=== PATIENT | male | born 1975 | race Native Hawaiian/Other Pacific Islander ===

== ENCOUNTER 2020-06-30 15:06 | Emergency (ER) | payer OTHER ==
[~2020-06-30] VITALS: Ht 177.8 cm; Wt 117.9 kg
[2020-06-30 15:06] VITALS: TEMP 97.9
[2020-06-30 15:34] LABS: PLATELET COUNT 211 K/uL (142-355)
[2020-06-30 15:41] LABS: SODIUM 138 mmol/L (136-145)
[2020-06-30 18:50] VITALS: BP 132/69
== END 2020-06-30 18:55 | disposition home or self-care (01) ==
LOC: ED 15:06
PROVIDERS: Family Medicine
DX: I50.9 Heart failure, unspecified (principal); J44.9 Chronic obstructive pulmonary disease, unspecified; E11.9 Type 2 diabetes mellitus without complications; F17.210 Nicotine dependence, cigarettes, uncomplicated
CPT/HCPCS: 80053; 81000; 82550; 83880; 84484; 85027; 85379; 87635; 93005; 94664; 96374; 96375; 99284; J1940; J2930; U0003

== ENCOUNTER 2020-08-10 05:14 | Inpatient (IN) | payer OTHER ==
[2020-08-10] VITALS (10 sets, daily range): BP systolic 108–172; BP diastolic 63–96; TEMP 97.7–98.5; Ht 177.8 cm; Wt 135.7 kg
[~2020-08-10] VITALS: Ht 177.8 cm; Wt 135.7 kg
[2020-08-10 06:10] LABS: PLATELET COUNT 230 K/uL (142-355)
[2020-08-10 06:14] LABS: POTASSIUM 3.5 mmol/L (3.6-5.2)
[2020-08-10 07:05] LABS: PARTIAL THROMBOPLASTIN TIME 24.3 SECONDS (24.5-33.6)
[2020-08-11 04:00] VITALS: BP 107/73; TEMP 97.9
[2020-08-11 06:29] LABS: PLATELET COUNT 213 K/uL (142-355)
[2020-08-11 08:00] VITALS: BP 122/67; TEMP 98.3
[2020-08-11 12:47] VITALS: BP 123/70; TEMP 98.4
[2020-08-11 16:00] VITALS: BP 122/68; TEMP 98.1
[2020-08-11 20:00] VITALS: BP 128/72; TEMP 97.8
[2020-08-12] VITALS: BP 129/81; TEMP 98.1
[2020-08-12 03:43] VITALS: BP 102/53; TEMP 98.6
[2020-08-12 05:43] LABS: PLATELET COUNT 169 K/uL (142-355)
[2020-08-12 05:54] LABS: POTASSIUM 3.8 mmol/L (3.6-5.2)
[2020-08-12 08:00] VITALS: BP 126/68; TEMP 97.9
[2020-08-12 12:00] VITALS: BP 130/69; TEMP 98.5
[2020-08-12] MEDS ORDERED: FURO40TA93 PO (12:32)
[2020-08-12 16:00] VITALS: BP 120/79; TEMP 97.9
[2020-08-12 20:06] VITALS: BP 128/73; TEMP 98.1
[2020-08-13] VITALS: BP 121/78; TEMP 99
[2020-08-13 04:00] VITALS: BP 117/69; TEMP 98.2
[2020-08-13 05:23] LABS: PLATELET COUNT 148 K/uL (142-355)
[2020-08-13 06:01] LABS: POTASSIUM 3.8 mmol/L (3.6-5.2)
[2020-08-13 08:00] VITALS: BP 113/71; TEMP 97.9
[2020-08-13 12:00] VITALS: BP 117/74; TEMP 97.9
== END 2020-08-13 15:00 | disposition home or self-care (01) | DRG 603 ==
LOC: ED 05:14 → MED/SURG 06:26
PROVIDERS: ADMIT Hospitalist; ATTEND Internal Medicine Endocrinology, Diabetes & Metabolism
DX: L03.116 Cellulitis of left lower limb (principal); Z68.41 Body mass index [BMI] 40.0-44.9, adult; L03.115 Cellulitis of right lower limb; I25.10 Atherosclerotic heart disease of native coronary artery without angina pectoris; I10 Essential (primary) hypertension; J44.9 Chronic obstructive pulmonary disease, unspecified; Z72.0 Tobacco use; E66.01 Morbid (severe) obesity due to excess calories; E78.49 Other hyperlipidemia; E11.9 Type 2 diabetes mellitus without complications; Z91.19 Patient's noncompliance with other medical treatment and regimen
CPT/HCPCS: 36415; 80048; 80053; 80202; 85027; 85610; 85730; 86140; 87040; 87635; 96361; 96365; 96372; 96374; 96375; 99284; J1170; J1650; J1815; J1885; J1940; J2270; J2405; J2543; J3370; U0003

== ENCOUNTER 2020-09-07 07:01 | Observation (INO) | payer OTHER ==
[~2020-09-07] VITALS: Ht 177.8 cm; Wt 135.6 kg
[~2020-09-07 07:01] MED LIST: FURO40TA93 PO
[2020-09-07 07:03] VITALS: BP 125/76; TEMP 98
[2020-09-07 07:29] LABS: POTASSIUM 4.6 mmol/L (3.6-5.2); SODIUM 142 mmol/L (136-145)
[2020-09-07 07:45] LABS: PLATELET COUNT 185 K/uL (142-355)
[2020-09-07 08:12] VITALS: BP 118/71
[2020-09-07 08:12] LABS: PARTIAL THROMBOPLASTIN TIME 23.6 SECONDS (24.5-33.6)
[2020-09-07 12:01] VITALS: BP 111/66; TEMP 98.2; Ht 177.8 cm; Wt 135.6 kg
[2020-09-07 16:00] VITALS: BP 108/69; BP 149/84; TEMP 97.6
[2020-09-07 19:55] VITALS: BP 113/71; TEMP 98.1
[2020-09-07 23:55] VITALS: BP 113/58; TEMP 98.2
[2020-09-08 03:51] VITALS: BP 97/60; TEMP 97.6
[2020-09-08 05:25] LABS: PLATELET COUNT 172 K/uL (142-355)
[2020-09-08 05:35] LABS: POTASSIUM 4.5 mmol/L (3.6-5.2)
[2020-09-08 08:00] VITALS: BP 118/60; TEMP 98.1
== END 2020-09-08 12:50 | disposition home or self-care (01) ==
LOC: ED 07:01 → MED/SURG 08:00
PROVIDERS: ADMIT Hospitalist; ATTEND Internal Medicine Endocrinology, Diabetes & Metabolism
DX: I11.0 Hypertensive heart disease with heart failure (principal); I50.9 Heart failure, unspecified; I25.10 Atherosclerotic heart disease of native coronary artery without angina pectoris; I10 Essential (primary) hypertension; J44.9 Chronic obstructive pulmonary disease, unspecified; Z72.0 Tobacco use; E66.01 Morbid (severe) obesity due to excess calories; Z68.41 Body mass index [BMI] 40.0-44.9, adult; E78.49 Other hyperlipidemia; E11.9 Type 2 diabetes mellitus without complications; Z91.19 Patient's noncompliance with other medical treatment and regimen; L03.116 Cellulitis of left lower limb; L03.115 Cellulitis of right lower limb
CPT/HCPCS: 36415; 80048; 80053; 82550; 82948; 83880; 84484; 85027; 85610; 85730; 87070; 87077; 87186; 87205; 87635; 93005; 94760; 96372; 96374; 96375; 99220; 99284; G0378; J1650; J1815; J1940; J2270; U0003

== ENCOUNTER 2020-09-26 23:16 | Emergency (ER) | payer OTHER ==
[~2020-09-26] VITALS: Ht 177.8 cm; Wt 135.6 kg
[2020-09-27 00:22] VITALS: BP 150/89; TEMP 98.1
== END 2020-09-27 00:24 | disposition home or self-care (01) ==
LOC: ED 23:16
DX: L03.116 Cellulitis of left lower limb (principal); L03.115 Cellulitis of right lower limb; M79.604 Pain in right leg
CPT/HCPCS: 96372; 99283; J0696; J1885

== ENCOUNTER 2020-10-08 18:13 | Observation (INO) | payer OTHER ==
[~2020-10-08] VITALS: Ht 177.8 cm; Wt 132.2 kg
[2020-10-08 18:37] VITALS: BP 129/81; TEMP 98
[2020-10-08 19:46] LABS: PLATELET COUNT 205 K/uL (142-355)
[2020-10-08 20:01] LABS: PARTIAL THROMBOPLASTIN TIME 23.9 SECONDS (24.5-33.6); POTASSIUM 3.6 mmol/L (3.6-5.2); SODIUM 137 mmol/L (136-145)
--- NOTE | 2020-10-08 21:48 | NUR ---
PATIENT TRANSFERRED TO THE FLOOR FROM ER VIA STRETCHER. PATIENT AMBULATED TO BED INDEPENDENTLY. 20G TO RIGHT HAND PATENT AND INTACT. RESPIRATIONS EVEN AND UNLABORED. NAD NOTED. BLE FROM THE KNEES DOWN ARE INFLAMMED AND ERYTHEMATOUS. SMALL SCABBED AREAS NOTED ON ANTERIOR ASPECT ON BOTH LOWER LEGS. OPEN, WEEPING AREA TO POSTERIOR ASPECT OF RIGHT LOWER EXTREMITY. MEASUREMENTS OF OPEN AREA: 11.5CM LENGTH X 8.5CM WIDTH. WEEPING SCANT AMOUNT OF CLEAR, SEROUS FLUID. INITIAL ASSESSMENT PERFORMED AT THIS TIME. PATIENT REPORTS SHOOTING PAIN TO RLE. RATES 8/10. HE IS UNABLE TO RECALL THE MEDICATIONS HE HAS BEEN PRESCRIBED, BUT HE STATES THAT HE ONLY TAKES LASIX AT HOME NOW. PATIENT WAS ORIENTED TO ROOM, SURROUNDINGS AND CALL LIGHT. BED LOCKED AND IN LOWEST POSITION. NAD NOTED.
--- NOTE | 2020-10-08 22:50 | NUR ---
MORPHINE 2MG GIVEN IVP AT THIS TIME FOR RLE PAIN.
[2020-10-08 23:19] VITALS: BP 142/87; TEMP 97.6; Ht 177.8 cm; Wt 132.2 kg
--- NOTE | 2020-10-08 23:54 | NUR ---
TOOK PT INCENTIVE SPIROMETER. HE SAID DID NOT NEED INSTRUCTING ON HOW TO DO. PT NOT IN ANY RESP. DISTRESS.
--- NOTE | 2020-10-08 23:55 | NUR ---
PATIENT STILL REPORTS SIGNIFICANT AMOUNT OF PAIN AT THIS TIME. ER PHYSICIAN DID ORDER A DRESSING TO RLE. NORCO 5/325MG GIVEN. WILL WAIT FOR RELIEF OF PAIN BEFORE DRESSING CHANGE. ZOSYN IVPB STARTED PER MD ORDERS.
[2020-10-09 00:29] VITALS: BP 145/84; TEMP 98
--- NOTE | 2020-10-09 00:30 | NUR ---
OKSANASYN FINISHED AT THIS TIME. 20G TO RIGHT HAND SALINE LOCKED. NO SWELLING OR TENDERNESS NOTED. DRESSING CHANGE PERFORMED AT THIS TIME. LAZARO WRAP APPLIED LOOSELY FOR PATIENT'S COMFORT. PATIENT TOLERATED WELL. HE STATES THAT HIS PAIN HAS IMPROVED SOME. BED LOCKED AND IN LOWEST POSITION. NAD NOTED. CALL LIGHT WITHIN EASY REACH. NC APPLIED @ 3L. V/S SHOW O2 SATURATION OF 90%. PATIENT DOES HAVE COPD AND SLEEP APNEA. HE STATES THAT HE NORMALLY WEARS A NC AT HOME ON 3L/MIN.
[2020-10-09 04:00] VITALS: BP 124/67; TEMP 97.5
--- NOTE | 2020-10-09 06:20 | NUR ---
OKSANASYN IVPB FINISHED. 20G TO RT HAND FLUSHED WITH NS. NO SWELLING OR TENDERNESS NOTED. I ASKED PATIENT MULTIPLE TIMES IF HE WAS IN PAIN OR NEEDED ANYTHING FOR PAIN. HE STATES THAT HE WAS OKAY FOR NOW. NC INTACT @ 3L/MIN. RESPIRATIONS EVEN AND UNLABORED. NAD NOTED. DRESSING TO RLE INTACT. CALL LIGHT WITHIN EASY REACH.
[2020-10-09 07:35] LABS: PLATELET COUNT 185 K/uL (142-355)
[2020-10-09 07:48] LABS: POTASSIUM 3.7 mmol/L (3.6-5.2)
[2020-10-09 08:00] VITALS: BP 112/573; TEMP 98.1
--- NOTE | 2020-10-09 08:30 | NUR ---
SPOKE WITH CLINTON FROM PHARMACY. SHE CHANGED HIS FREQUENCY OF VANCOMYCIN TO EVERY 8 HOURS INSTEAD OF 12. SHE SAID THAT HIS VANC TROUGH WOULD BE DUE AT 0830 ON 10/10/20.
[2020-10-09 12:00] VITALS: BP 125/69; TEMP 98
--- NOTE | 2020-10-09 15:16 | NUR ---
PATIENT COMPLAINS OF SHORTNESS OF BREATH AND STATES THAT HE CAN TELL HE HAS NOT TAKEN HIS LASIX TODAY. SPOKE WITH DR. MOJICA. GAVE 40MG OF IV LASIX PER MD ORDERS. PATIENT SALINE LOCK. PATIENT SITTING IN HIGH OJEDA'S WITH MILD SOB. BED IN LOWEST POSITION. CALL LIGHT WITHIN REACH. SIDE RAILS UP X2. WILL CONTINUE TO MONITOR.
[2020-10-09 16:00] VITALS: BP 136/80; TEMP 98.1
--- NOTE | 2020-10-09 17:45 | NUR ---
DRESSING CHANGE PERFORMED TO RLE PER ORDERS. PATIENT TOLERATED WELL. NAD NOTED. PATIENT STATED THERE WAS MINIMAL PAIN WITH PROCEDURE.
[2020-10-09 19:58] VITALS: BP 101/50; TEMP 98.2
[2020-10-10 00:19] VITALS: BP 98/57; TEMP 98
--- NOTE | 2020-10-10 02:33 | NUR ---
PATIENT AWAKE AND WATCHING TV. PATIENT DENIES ANY PAIN, NEEDS OR C/O AT THIS TIME. NO S/SX OF DISTRESS NOTED WITH PATIENT.
--- NOTE | 2020-10-10 04:03 | NUR ---
PATIENT REPORTED PAIN IN HIS LEGS AT THE BEGINNING OF THE SHIFT BUT AFTER RECIEVEING PAIN MEDICATION AT THE BEGINNING OF THE NIGHT THE PATIENT DENIED PAIN. BOTH LOWER EXTREMITIES HAVE REGULAR PEDAL PULSES. PATIENTS DRESSING ON HIS RT LEG IS CLEAN DRY AND INTACT.
[2020-10-10 04:09] VITALS: BP 94/41; TEMP 98.4
[2020-10-10 05:12] LABS: PLATELET COUNT 161 K/uL (142-355)
[2020-10-10 05:28] LABS: POTASSIUM 3.7 mmol/L (3.6-5.2)
[2020-10-10 08:00] VITALS: BP 88/42; TEMP 98
--- NOTE | 2020-10-10 09:00 | NUR ---
PATIENT BP 88/42. LASIX WITHHELD DUE TO HYPOTENSION.
--- NOTE | 2020-10-10 10:00 | NUR ---
PATIENT RESTING IN BED. MORNING MEDICATION GIVEN. VANC TROUGH RECEIVED FROM LAB- 11.7. NEXT ROUND OF VANC STARTED BY SINK CUTTER. PATIENT TOLERATED WELL. PATIENT STATES HE HAS SOME PAIN FROM RLE. PATIENT REFUSES TYLENOL.
[2020-10-10 12:00] VITALS: BP 110/57; TEMP 98.1
--- NOTE | 2020-10-10 12:00 | NUR ---
PATIENT RESTING IN BED WATCHING TV. NAD NOTED. PATIENT STATES THAT HE HAS MILD PAIN IN RLE. PATIENT REFUSED TYLENOL STATING THAT IT DOES NOT HELP.
[2020-10-10 16:00] VITALS: BP 133/81; TEMP 98.1
--- NOTE | 2020-10-10 18:45 | NUR ---
DRESSING CHANGE TO RLE. PRN MORPHINE GIVEN BEFORE. PATIENT DID NOT HAVE SAME DRESSING THAT LAMINATION ASSEMBLER PLACED YESTERDAY. CLEANED WITH NORMAL SALINE. COVERED WITH SALINE SOAKED 4X4. WITH DRY DRESSING COVERING. WRAPPED IN MEL. THEN WRAPPED WITH LAZARO BANDAGE. PATIENT HAD SEVERE PAIN WITH DRESSING CHAGE. PATIENT WAS TEARFUL. NAD NOTED. WILL CONTINUE TO MONITOR.
[2020-10-10 20:20] VITALS: BP 109/59; TEMP 97.7
[2020-10-11] VITALS: BP 127/67; TEMP 98.3
--- NOTE | 2020-10-11 03:14 | NUR ---
[place] [id number] PATIENT WAS REPORTING PAIN IN HIS LEG. HIS BP WAS 109/59. IT WAS TOO LOW FOR THE HYDROCODONE OR MORPHINE. I CALLED THE ER DOCTOR, GABI AND HER ORDERED 30MG OF TORADOL IV. AFTER 30 MINS PATIENT REPORTED RELIEF AND NO ADVERSE EFFECTS NOTED
--- NOTE | 2020-10-11 03:16 | NUR ---
PATIENT HAS BEEN RESTING QUIETLY. PATIENT REPORTED LEG PAIN AT 0300. HIS BP SYSTOLIC WAS OVER 120 SYSTOLIC. HE WAS GIVEN HYDRACODONE. THE PATIENT NOW REPORTS RELIEF.
--- NOTE | 2020-10-11 03:18 | NUR ---
PATIENTS PETAL PULSES ARE NORMAL STRENGTH AND PATIENT REPORTS NO PAIN.
[2020-10-11 03:28] VITALS: BP 97/61; TEMP 97.7
[2020-10-11 04:47] LABS: PLATELET COUNT 156 K/uL (142-355)
[2020-10-11 04:51] LABS: POTASSIUM 3.7 mmol/L (3.6-5.2)
[2020-10-11 08:01] VITALS: BP 112/65; TEMP 98
--- NOTE | 2020-10-11 09:00 | NUR ---
IN TO GIVE MORINING MEDICATIONS. PATIENT STATED THAT HE WAS READY TO GO HOME AND THE DOCTOR TOLD HIM HE WAS. NAD NOTED. PATIENT HAD TAKEN TELEMETRY OFF. PATIENT STATES THAT HE DOES NOT WANT A DRESSING CHANGE.
[2020-10-11 12:00] VITALS: BP 120/81; TEMP 97.9
--- NOTE | 2020-10-11 14:00 | NUR ---
AT 1500 PATIENT 20G PERIPHERAL IV TO LEFT FOREARM D/C WITH TIP INTACT. PATIENT TOLERATED WELL. NAD NOTED.
--- NOTE | 2020-10-11 14:15 | NUR ---
AT 1515 PATIENT DISCHARGED TO HOME VIA PERSONAL VEHICLE WITH FRIEND DRIVING.
--- NOTE | 2020-10-11 14:24 | NUR ---
1445 NEW ORDERS GIVEN FOR SILVADENE FOR WOUND CARE. WOUNDS CLEANED AND SILVADENE APPLIED COVERED WITH ABD PAD AND WRAPPED WITH MEL AND LAZARO WRAP.
== END 2020-10-11 14:06 | disposition home or self-care (01) ==
LOC: ED 18:13 → MED/SURG 20:30
PROVIDERS: ADMIT Hospitalist; ATTEND Internal Medicine Endocrinology, Diabetes & Metabolism
DX: L03.116 Cellulitis of left lower limb (principal); L03.115 Cellulitis of right lower limb; J44.9 Chronic obstructive pulmonary disease, unspecified; E11.9 Type 2 diabetes mellitus without complications; K21.9 Gastro-esophageal reflux disease without esophagitis; I25.10 Atherosclerotic heart disease of native coronary artery without angina pectoris; E78.49 Other hyperlipidemia; I11.0 Hypertensive heart disease with heart failure; I50.9 Heart failure, unspecified; E66.01 Morbid (severe) obesity due to excess calories; Z68.41 Body mass index [BMI] 40.0-44.9, adult; Z91.19 Patient's noncompliance with other medical treatment and regimen
CPT/HCPCS: 36415; 80048; 80053; 80202; 82550; 82948; 83605; 83880; 84484; 85027; 85610; 85730; 87040; 87635; 93005; 94760; 96365; 96367; 96372; 96375; 99220; 99284; G0378; J1650; J1815; J1885; J1940; J2270; J2405; J2543; J3370; U0003

== ENCOUNTER 2020-11-12 21:38 | Emergency (ER) | payer OTHER ==
[~2020-11-12] VITALS: Ht 177.8 cm; Wt 136.1 kg
[2020-11-12 22:36] LABS: PLATELET COUNT 188 K/uL (142-355)
[2020-11-12 22:44] LABS: POTASSIUM 3.7 mmol/L (3.6-5.2)
[2020-11-12 22:54] LABS: PARTIAL THROMBOPLASTIN TIME 24.1 SECONDS (24.5-33.6)
[2020-11-13 00:05] VITALS: BP 138/82; TEMP 98.7
== END 2020-11-13 00:05 | disposition home or self-care (01) ==
LOC: ED 21:38
PROVIDERS: Hospitalist
DX: L03.116 Cellulitis of left lower limb (principal); L03.115 Cellulitis of right lower limb
CPT/HCPCS: 36415; 80053; 83605; 85027; 85610; 85730; 87040; 96365; 96375; 99284; J1885; J1940; J3370

== ENCOUNTER 2020-11-15 16:12 | Inpatient (IN) | payer OTHER ==
[~2020-11-15] VITALS: Ht 177.8 cm; Wt 134.4 kg
[2020-11-15] VITALS (7 sets, daily range): BP systolic 107–166; BP diastolic 60–100; TEMP 98.2–98.4; Ht 177.8 cm; Wt 134.4 kg
[2020-11-15 17:06] LABS: PLATELET COUNT 227 K/uL (142-355)
[2020-11-15 17:10] LABS: POTASSIUM 3.7 mmol/L (3.6-5.2)
[2020-11-16] VITALS (7 sets, daily range): BP systolic 106–132; BP diastolic 64–85; TEMP 97.7–98.9
[2020-11-16 13:04] LABS: PLATELET COUNT 219 K/uL (142-355)
[2020-11-17 03:49] VITALS: BP 117/66; TEMP 97.9
[2020-11-17 08:00] VITALS: BP 108/51; TEMP 98.5
[2020-11-17 12:00] VITALS: BP 130/79; TEMP 98.1
[2020-11-17 16:00] VITALS: BP 149/88; TEMP 97.6
[2020-11-17 20:11] VITALS: BP 125/74; TEMP 98.2
[2020-11-18 00:06] VITALS: BP 131/73; TEMP 97.7
[2020-11-18 04:12] VITALS: BP 110/62; TEMP 98.6
[2020-11-18 06:09] LABS: PLATELET COUNT 205 K/uL (142-355)
[2020-11-18 08:00] VITALS: BP 120/84; TEMP 97.9
[2020-11-18 12:00] VITALS: BP 139/55; TEMP 98.5
[2020-11-18 16:00] VITALS: BP 127/78; TEMP 97.5
[2020-11-18 20:00] VITALS: BP 134/81; TEMP 97.7
[2020-11-19] VITALS: BP 115/92; TEMP 97.4
[2020-11-19 04:00] VITALS: BP 129/69; TEMP 97.8
[2020-11-19 04:32] LABS: PLATELET COUNT 205 K/uL (142-355)
[2020-11-19 05:10] LABS: POTASSIUM 4.4 mmol/L (3.6-5.2)
[2020-11-19 08:00] VITALS: BP 128/76; TEMP 98.1
[2020-11-19 12:00] VITALS: BP 105/55; TEMP 98.3
[2020-11-19 16:00] VITALS: BP 125/73; TEMP 98.3
[2020-11-19 20:00] VITALS: BP 145/76; TEMP 98.6
[2020-11-20] VITALS (7 sets, daily range): BP systolic 99–145; BP diastolic 53–82; TEMP 97.6–98.5
[2020-11-20 05:48] LABS: PLATELET COUNT 176 K/uL (142-355)
[2020-11-20 06:08] LABS: POTASSIUM 4.1 mmol/L (3.6-5.2)
[2020-11-21 04:25] VITALS: BP 98/51; TEMP 98.2
[2020-11-21 05:18] LABS: PLATELET COUNT 185 K/uL (142-355)
[2020-11-21 05:35] LABS: POTASSIUM 3.8 mmol/L (3.6-5.2)
[2020-11-21 08:00] VITALS: BP 132/64; TEMP 98.5
[2020-11-21 12:00] VITALS: BP 120/76; TEMP 98
[2020-11-21 16:00] VITALS: BP 123/78; TEMP 98.6
[2020-11-21 20:00] VITALS: BP 123/68; TEMP 99.7
[2020-11-22] VITALS (7 sets, daily range): BP systolic 113–128; BP diastolic 62–75; TEMP 98.4–98.8
[2020-11-22 07:59] LABS: PLATELET COUNT 206 K/uL (142-355)
[2020-11-23 04:15] VITALS: BP 129/63; TEMP 98.1
[2020-11-23 08:00] VITALS: BP 116/68; TEMP 97.8
[2020-11-23 08:46] LABS: PLATELET COUNT 201 K/uL (142-355)
[2020-11-23 08:51] LABS: POTASSIUM 4.1 mmol/L (3.6-5.2)
[2020-11-23 12:00] VITALS: BP 145/69; TEMP 98.5
== END 2020-11-23 14:10 | disposition home or self-care (01) | DRG 603 ==
LOC: ED 16:12 → MED/SURG 18:09
PROVIDERS: Emergency Medicine Emergency Medical Services; Internal Medicine Endocrinology, Diabetes & Metabolism; ADMIT Internal Medicine; ATTEND Internal Medicine
DX: L03.116 Cellulitis of left lower limb (principal); Z68.41 Body mass index [BMI] 40.0-44.9, adult; L03.115 Cellulitis of right lower limb; B95.62 Methicillin resistant Staphylococcus aureus infection as the cause of diseases classified elsewhere; B96.5 Pseudomonas (aeruginosa) (mallei) (pseudomallei) as the cause of diseases classified elsewhere; I25.10 Atherosclerotic heart disease of native coronary artery without angina pectoris; J44.9 Chronic obstructive pulmonary disease, unspecified; I11.0 Hypertensive heart disease with heart failure; I50.9 Heart failure, unspecified; E11.9 Type 2 diabetes mellitus without complications; Z91.14 Patient's other noncompliance with medication regimen; E66.8 Other obesity; Z71.3 Dietary counseling and surveillance; Z72.0 Tobacco use
CPT/HCPCS: 36415; 80048; 80053; 80202; 83036; 83605; 83880; 85027; 87040; 87070; 87077; 87185; 87186; 87205; 87635; 96360; 96365; 96366; 96375; 99284; J0744; J1200; J1650; J1815; J1885; J1940; J2270; J2405; J3370; J3490; J7040; U0003

== ENCOUNTER 2020-12-11 14:19 | Outpatient (CLI) | payer OTHER ==
[2020-12-11 14:34] LABS: PLATELET COUNT 210 K/uL (142-355)
[2020-12-11 14:56] LABS: POTASSIUM 4.1 mmol/L (3.6-5.2)
== END 2020-12-11 22:42 | disposition home or self-care (01) ==
LOC: LAB 14:19
PROVIDERS: ATTEND Physician Assistant
DX: L03.116 Cellulitis of left lower limb (principal); L03.115 Cellulitis of right lower limb; E11.65 Type 2 diabetes mellitus with hyperglycemia; I50.9 Heart failure, unspecified; R06.01 Orthopnea
CPT/HCPCS: 80053; 80061; 83036; 83880; 84439; 84443; 85027; 85652; 86140

== ENCOUNTER 2021-02-04 15:36 | Emergency (ER) | payer OTHER ==
[~2021-02-04] VITALS: Ht 177.8 cm; Wt 134.3 kg
[2021-02-04 17:01] LABS: PLATELET COUNT 229 K/uL (142-355)
[2021-02-04 17:07] LABS: POTASSIUM 3.8 mmol/L (3.6-5.2)
[2021-02-04 18:05] VITALS: BP 135/90; TEMP 98
== END 2021-02-04 18:05 | disposition home or self-care (01) ==
LOC: ED 15:36
PROVIDERS: Family Medicine
DX: L03.116 Cellulitis of left lower limb (principal); L03.115 Cellulitis of right lower limb
CPT/HCPCS: 80053; 85027; 96372; 99283; J0696; J1885

== ENCOUNTER 2021-03-03 13:46 | Emergency (ER) | payer OTHER ==
[~2021-03-03] VITALS: Ht 177.8 cm; Wt 134.3 kg
[2021-03-03 15:10] VITALS: BP 149/85; TEMP 97.8
== END 2021-03-03 15:10 | disposition home or self-care (01) ==
LOC: ED 13:46
DX: L03.116 Cellulitis of left lower limb (principal); L03.115 Cellulitis of right lower limb; M79.604 Pain in right leg
CPT/HCPCS: 96372; 99283; J0696; J1885

== ENCOUNTER 2021-03-04 22:18 | Emergency (ER) | payer OTHER ==
[~2021-03-04] VITALS: Ht 177.8 cm; Wt 134.3 kg
[2021-03-04 23:26] VITALS: BP 146/94; TEMP 98.3
== END 2021-03-04 22:32 | disposition home or self-care (01) ==
LOC: ED 22:18
DX: L03.116 Cellulitis of left lower limb (principal); L03.115 Cellulitis of right lower limb
CPT/HCPCS: 99283

== ENCOUNTER 2021-03-14 03:55 | Emergency (ER) | payer OTHER ==
[~2021-03-14] VITALS: Ht 177.8 cm; Wt 134.3 kg
[2021-03-14 05:27] LABS: PLATELET COUNT 279 K/uL (142-355)
[2021-03-14 06:51] VITALS: BP 148/92; TEMP 98.9
== END 2021-03-14 06:51 | disposition home or self-care (01) ==
LOC: ED 03:55
PROVIDERS: Family Medicine
DX: M79.605 Pain in left leg (principal); M79.604 Pain in right leg
CPT/HCPCS: 36415; 80048; 85027; 85379; 96372; 99283; J1885

== ENCOUNTER 2021-04-04 14:10 | Emergency (ER) | payer OTHER ==
[~2021-04-04] VITALS: Ht 177.8 cm; Wt 136.1 kg
[2021-04-04 14:14] VITALS: TEMP 98.6
[2021-04-04 14:49] VITALS: BP 136/86
== END 2021-04-04 14:49 | disposition home or self-care (01) ==
LOC: ED 14:10
DX: I50.9 Heart failure, unspecified (principal)
CPT/HCPCS: 99282

== ENCOUNTER 2021-04-21 14:22 | Inpatient (IN) | payer OTHER ==
[~2021-04-21] VITALS: Ht 177.8 cm; Wt 132.5 kg
[2021-04-21 14:31] VITALS: BP 129/74; TEMP 97.3
[2021-04-21 15:36] LABS: PLATELET COUNT 294 K/uL (142-355)
[2021-04-21 15:39] LABS: POTASSIUM 3.8 mmol/L (3.6-5.2)
[2021-04-21 19:50] VITALS: BP 146/86; TEMP 97.7; Ht 177.8 cm; Wt 132.5 kg
[2021-04-21 20:12] VITALS: BP 142/58; TEMP 97.6
[2021-04-22 00:01] VITALS: BP 129/72; TEMP 98.2
[2021-04-22 04:00] VITALS: BP 134/88; TEMP 97.5
[2021-04-22 05:23] LABS: PLATELET COUNT 251 K/uL (142-355)
[2021-04-22 05:28] LABS: POTASSIUM 4.2 mmol/L (3.6-5.2)
[2021-04-22 08:00] VITALS: BP 105/75; TEMP 97.6
[2021-04-22 12:00] VITALS: BP 130/67; TEMP 98.1
[2021-04-22 16:00] VITALS: BP 143/77; TEMP 97.5
[2021-04-22 20:00] VITALS: BP 116/64; TEMP 98.2
[2021-04-23] VITALS: BP 121/78; TEMP 97.9
[2021-04-23 04:00] VITALS: BP 128/86; TEMP 98.1
[2021-04-23 05:01] LABS: POTASSIUM 4.6 mmol/L (3.6-5.2)
[2021-04-23 05:03] LABS: PLATELET COUNT 247 K/uL (142-355)
[2021-04-23 08:00] VITALS: BP 117/74; TEMP 98.7
[2021-04-23 12:00] VITALS: BP 99/55; TEMP 98.9
[2021-04-23 16:00] VITALS: BP 136/72; TEMP 98.1
[2021-04-23 20:21] VITALS: BP 99/54; TEMP 98.3
[2021-04-24] VITALS: BP 111/52; TEMP 98
[2021-04-24 04:00] VITALS: BP 124/70; TEMP 97.8
[2021-04-24 04:30] LABS: PLATELET COUNT 253 K/uL (142-355)
[2021-04-24 04:42] LABS: POTASSIUM 4.6 mmol/L (3.6-5.2)
[2021-04-24 08:00] VITALS: BP 99/42; TEMP 98
[2021-04-24 12:00] VITALS: BP 117/68; TEMP 98.4
[2021-04-24 16:00] VITALS: BP 135/90; TEMP 98.7
[2021-04-24 20:29] VITALS: BP 114/65; TEMP 98.3
[2021-04-25] VITALS (7 sets, daily range): BP systolic 114–148; BP diastolic 68–89; TEMP 97.4–98.6
[2021-04-25 05:12] LABS: PLATELET COUNT 275 K/uL (142-355)
[2021-04-25 06:16] LABS: POTASSIUM 4.1 mmol/L (3.6-5.2)
[2021-04-26 04:00] VITALS: BP 125/85; TEMP 98.3
[2021-04-26 06:01] LABS: PLATELET COUNT 293 K/uL (142-355)
[2021-04-26 06:08] LABS: POTASSIUM 4.3 mmol/L (3.6-5.2)
[2021-04-26 08:00] VITALS: BP 113/71; TEMP 97.7
[2021-04-26 12:00] VITALS: BP 118/70; TEMP 97.9
[2021-04-26 16:00] VITALS: BP 151/90; TEMP 98.1
[2021-04-26 20:00] VITALS: BP 137/85; TEMP 99.6
[2021-04-27 00:24] VITALS: BP 131/86; TEMP 98.7
[2021-04-27 04:00] VITALS: BP 115/63; TEMP 98.4
[2021-04-27 06:51] LABS: PLATELET COUNT 294 K/uL (142-355)
[2021-04-27 07:06] LABS: POTASSIUM 4.3 mmol/L (3.6-5.2)
[2021-04-27 08:00] VITALS: BP 141/84; TEMP 98.1
[2021-04-27 12:00] VITALS: BP 113/80; TEMP 98.5
== END 2021-04-27 13:30 | disposition home or self-care (01) | DRG 603 ==
LOC: ED 14:22 → MED/SURG 16:30
PROVIDERS: Family Medicine; ADMIT Internal Medicine Endocrinology, Diabetes & Metabolism; ATTEND Internal Medicine Endocrinology, Diabetes & Metabolism
DX: L03.116 Cellulitis of left lower limb (principal); I25.110 Atherosclerotic heart disease of native coronary artery with unstable angina pectoris; Z68.41 Body mass index [BMI] 40.0-44.9, adult; L03.115 Cellulitis of right lower limb; J44.9 Chronic obstructive pulmonary disease, unspecified; Z72.0 Tobacco use; E11.9 Type 2 diabetes mellitus without complications; E78.49 Other hyperlipidemia; I25.2 Old myocardial infarction; Z91.19 Patient's noncompliance with other medical treatment and regimen; I11.0 Hypertensive heart disease with heart failure; I50.9 Heart failure, unspecified; E66.01 Morbid (severe) obesity due to excess calories
CPT/HCPCS: 36415; 80048; 80053; 85027; 87040; 87635; 96365; 96375; 99284; J0696; J1885; J1940; J2175; J2270; J2543; J3490; U0003

== ENCOUNTER 2021-06-02 10:30 | Inpatient (IN) | payer OTHER ==
[~2021-06-02] VITALS: Ht 177.8 cm; Wt 135.7 kg
[2021-06-02] VITALS (7 sets, daily range): BP systolic 123–164; BP diastolic 70–96; TEMP 98.4–98.6; Ht 177.8 cm; Wt 135.7 kg
[2021-06-02 12:12] LABS: PLATELET COUNT 274 K/uL (142-355)
[2021-06-02 12:20] LABS: POTASSIUM 3.8 mmol/L (3.6-5.2)
--- NOTE | 2021-06-02 16:22 | NUR ---
PT ARRIVED TO MED-SURG FLOOR FROM ER AT 1601. PT HAS IV SITE TO RIGHT UPPER SHOULDER, 22GA, WITH NO SWELLING, REDNESS OR LEAKING NOTED TO STIE. IVF INFUSING AT 75ML/HR ORDERED. DX: CELLULITIS TO BILATERAL LOWER EXTREMETIES R/T NON-COMPLIANCE WITH TX. PT HAS O2 AT 3LPM VIA NC, O2 SATS=86%. PT ALERT AND ORIENTED X4.
--- NOTE | 2021-06-02 16:44 | NUR ---
IN PT RM FOR ADMISSION ASSESSMENT, PT SITTING ON EOB EATING SUPPER, NAD NOTED, NONLABORED BREATHING, PT NOTED TO HAVE BILAT LOWER EXT CELLULITIS WITH OPEN WOUNDS AND LARGE AMOUNT OF BROWN DRAINAGE NOTED, BOTTOM OF PT FEET BILAT ARE BLACK IN COLOR AND DIRTY WITH LONG UNTRIMMED TOE NAILS, PT RATES PAIN TO BILAT LOWER EXT AT 10 ON 0-10 PAIN SCALE, PT HAS NO OTHER COMPLAINTS AT THIS TIME, CALL [facility] WITHIN REACH, WILL CONTINUE TO MONITOR
[2021-06-02] MEDS ORDERED: METF500T PO (18:32)
--- NOTE | 2021-06-02 18:43 | NUR ---
WOUND CARE COMPLETED TO BILATERAL LOWER EXTREMITIES R/T CELLULITIS. CLEANED WOUND WITH NS, APPLY SILVADENE, APPLY 4X4 GAUZE, WRAP WITH STRETCH MEL GAUZE AND LAZARO BANDAGE ORDERED PER HCP. PURULENT DRAINAGE DRIPPING FROM PTS LEGS(BILATERAL). EDEMA NOTED AND NON-PITTING. PT TOLERATED WOUND CARE WITH MINIMUM C/O PAIN. ADMINISTERED PAIN MEDS ORDERED PRIOR TO WOUND CARE TX. CONTINUE TO MONITOR.
[2021-06-03] VITALS: BP 125/83; TEMP 97.9
[2021-06-03 04:00] VITALS: BP 129/79; TEMP 98.8
--- NOTE | 2021-06-03 04:16 | NUR ---
CALL LIGHT ANSWERED PT STATES HE HIS HAVING PAIN. PT C/O CONSTANT PAIN TO BOTH LEGS THAT IS AN "8" ON SCALE PT STATES THAT THE PAIN WOKE HIM UP FROM SLEEPING. GAVE DILAUDID 1MG IVP PRN FOR PAIN. WILL MONITOR CLOSELY, RAILS UP, BED IN LOW POSITION, CALL LIGHT IN REACH, ENCOURAGED TO CALL NEEDED.
--- NOTE | 2021-06-03 04:37 | NUR ---
Patient is on a 2000 Calorie diet plan. 5'10" at 311 lbs. and BMI at 44.6 and is higher than the highest stage of obesity. IBW = 166+/-10% (149 to 183 lbs.) and kcal needs for IBW x 25 = 180, x 30 = 2300, x 35 = 2600, x 40 = 3000 kcal per day, protein needs at upper x 1.5 = 116 grams per day and is 187% of IBW. Has a diagnosis of cellulitis of lower extremeties, COPD, PVD, CAD, tobacco abuse, hyperlipidemia, CHF, GERD, medical non-compliance, HTN, Obesity, GERD, and is on metformin and RD reviewed all other medication it the EMR. Has chronic lower extremetity woounds and alb at 2.9, Hgb, MCH, MCHC and alt 21 all depressed and the labs elevated are RDW and gl at 295. RD available as needed. RD Recommendations: 1-Monitor labs 2-OT to work with the patient 3-PT to work wiht the patient 4-Add cardiac to the diet plan and 5-May too to do a fluid restriction and if 6-Not compliant please have the patient to sign a dietary refusal form 7-Add Vitamin C 500 mg BID 8-Add ZNSO4 220 mg per day and d/c in 14 days 9-Add Protein 30 ml/cc TID 10-Make sure hydrated 11-Add High Fiber to diet order if will follow
[2021-06-03 04:56] LABS: PLATELET COUNT 249 K/uL (142-355)
[2021-06-03 04:58] LABS: POTASSIUM 4.2 mmol/L (3.6-5.2)
--- NOTE | 2021-06-03 05:30 | NUR ---
RESTING IN BED WITH EYES CLOSED ON L SIDE, NO S/S OF PAIN OR REACTIONS TO PRN MED GIVEN, WILL MONITOR CLOSELY, RAILS UP, BED IN LOW POSITION.
[2021-06-03 08:00] VITALS: BP 124/73; TEMP 98.7
[2021-06-03 12:00] VITALS: BP 108/61; TEMP 98.9
--- NOTE | 2021-06-03 12:53 | NUR ---
PT AWAKE AND ALERT. PTS IV SITE TO UPPER RIGHT SHOULDER LEAKING. NEW IV SITE STARTED AT 0730 BY NURSE FELIPE, RN, TO LEFT UPPER FA X 2 ATTEMPTS WITH A 22GA. NO SWELLING OR REDNESS NOTED. IVF INFUSING WITH NS AT 75ML/HR. PTS BANDAGES TO LOWER EXTREMITIES HAS DRESSING DRY AND INTACT. AM MEDS ADMINISTERED ORDERED AND PT TOLERATED WELL. AFTER BREAKFAST PT WANTED TO GET UP AND SIT IN CHAIR. PT C/O PAIN TO LOWER EXTREMITIES. ADMINISTERED PAIN MEDS ORDERED. NAD NOTED. O2 @3LPM VIA NC.
--- NOTE | 2021-06-03 14:45 | NUR ---
HAZARDS cognition interview completed today. Patient was able to repeat sock,blue,bed behind telegraphic typewriter installer. When asked the year he said it was 2008, the month was January, and the day of the week was Monday. When asked to recall the three words that we had said together he said Tony,red,and pillow after cueing. He did say that on occasion he will feel depressed, and sometimes will feel bad about self like if he had made his family feel bad. He says that it is rare. He denies every wanting to hurt himself. He says that he does not have a poor appetite, but telegraphic typewriter installer has observed his tray multiple times and he does not eat but around 25% of meals. He says that he has never been a big eater. Patient left sitting in chair watching tv with call light in reach.
[2021-06-03 16:00] VITALS: BP 122/82; TEMP 98.5
--- NOTE | 2021-06-03 18:45 | NUR ---
PT SITTING UP IN CHAIR. WOUND CARE COMPLETED TO BILATERAL EXTREMITIES. PURULENT DRAINAGE SATURATED DRESSING. CLEANED WITH NS, SILVADENE APPLIED, 4X4 STERILE GAUZE APPLIED, KERLIX WRAP AND LAZARO BANDAGE APPLIED AND INTACT. PT TOOK A SHOWER TODAY PRIOR TO DRESSING CHANGE. PAIN MEDS ADMINISTERED PRIOR TO WOUND CARE. IV SITE TO LEFT UPPER ARM INTACT WITH NO SWELLING OR REDNESS NOTED.
[2021-06-03 20:00] VITALS: BP 117/70; TEMP 99.2
--- NOTE | 2021-06-03 23:30 | NUR ---
PT AWAKE AND ALERT IN BED. PT ACCEPTED HS MEDICATION WITHOUT COMPLICATION. IV SITE INTACT AND PATENT. PT TOLLERATED DRESSING CHANGE TO BILATERAL EXTERIMITES WELL. PT REQUIRES MINIMAL ASSISTANCES WITH ADLS. PT VOICE COMPLAINS OF PAIN IN KATT. LOWER EXTRERMETIES DURING MED PASS. PT VOICED THAT PAIN MEDICATION ASSISTED WITH SOME RELIEF. NO SIGN OF ACUTE DISTRESS NOTED AT PRESENT WILL CONTINUE TO MONITOR.
[2021-06-04] VITALS: BP 118/66; TEMP 98.7
[2021-06-04 04:00] VITALS: BP 104/52; TEMP 99.2
[2021-06-04 04:58] LABS: PLATELET COUNT 233 K/uL (142-355)
[2021-06-04 05:01] LABS: POTASSIUM 4.1 mmol/L (3.6-5.2)
[2021-06-04 08:00] VITALS: BP 120/64; TEMP 98.4
--- NOTE | 2021-06-04 08:22 | NUR ---
IN PT'S ROOM FOR MORNING ASSESSMENT PT IS MOVING FROM THE BED TO THE CHAIR. PT'S GAIT IS STEADY BUT PT IS SLIGHTLY UNBALANCED DUE TO PAIN IN THE LOWER EXTREMITIES. PT IS IN PAIN AND RATES HIS PAIN AN 8 ON A SCALE OF 0-10, PRN DOSE OF DILAUDID WAS GIVEN. LUNG SOUNDS WERE CLEAR TO THE LEFT SIDE AND SLIGHTLY DIMINISHED ON THE RIGHT SIDE, NO COUGH IS PRESENT, PT IS WEARING NASAL CANULA AT 3LPM. HEART SOUNDS ARE AUSCULTATED, PULSES PALPATED BUT ARE WEAK IN THE FEET, EDEMA IS PRESENT IN THE BLE DUE TO CELLULITIS INFECTIONS. BLE ARE WRAPPED. GASTRIC SOUNDS ARE PRESENT IN ALL FOUR QUADRANTS. PT DENIES ANY NEEDS AT THIS TIME AND WAS LEFT UPRIGHT IN THE CHAIR WATCHING TV WITH CALL LIGHT WITHIN REACH. NO DISTRESS IS NOTED AT THIS TIME.
[2021-06-04 12:00] VITALS: BP 139/70; TEMP 98.7
--- NOTE | 2021-06-04 15:15 | NUR ---
RUBBER STAMP ASSEMBLER ASKED PT IF RUBBER STAMP ASSEMBLER COULD ELEVATE THE PT'S FEET. PT STATED THAT LAYING HIS LEGS FLAT ON THE BED MAKES THEM HURT. RUBBER STAMP ASSEMBLER SUGGESTED PUTTING ANOTHER CHAIR IN FRONT OF PT TO PROP FEET IN INSTEAD. PT DENIED AND STATED THAT IT WOULD HURT TOO MUCH AND THAT HE HAD ALREADY TRIED THAT AND IT DID NOT WORK.
--- NOTE | 2021-06-04 15:54 | NUR ---
POWER LINE INSTALLER AND REPAIRER HAS UNWRAPPED PT'S LEGS WHILE PT IS LAYING IN THE BED. PT'S DRESSING IS SATURATED WITH EXUDATE FROM WOUNDS LOCATED ON THE BLE. PT REFUSED TO LET POWER LINE INSTALLER AND REPAIRER REMOVE ALL OF DRESSING AT THIS TIME AND STATED THAT WHEN AIR HITS THE WOUNDS IT IS EXCRUCIATING PAIN.
[2021-06-04 16:00] VITALS: BP 125/62; TEMP 99
[2021-06-04 20:00] VITALS: BP 128/76; TEMP 98.8
--- NOTE | 2021-06-04 21:00 | NUR ---
PT UP IN BEDSIDE CHAIR WITH NO DISTRESS NOTED. TOLERATED MEDICATION WELL WITH A HIBICLENS BATH GIVEN. NO ACUTE DISTRESS PRESENT WITH PRN PAIN MEDICATION GIVEN TO ALLEVIATE BILATERAL LOWER EXTREMITY PAIN. NASAL CANNULA INTACT WITH 3L/MIN OF O2 BEING DELIVERED. ALERT AND ORIENTED TO ALL NEEDS, DRESSING CHANGES COMPLETED TO BILATERAL LOWER EXTREMITIES PER ORDERS WILL CONTINUE TO MONITOR FOR HEALTH STATUS CHANGES.
[2021-06-05] VITALS: BP 125/62; TEMP 97.9
[2021-06-05 04:00] VITALS: BP 143/90; TEMP 98
[2021-06-05 05:28] LABS: PLATELET COUNT 220 K/uL (142-355)
[2021-06-05 05:38] LABS: POTASSIUM 3.9 mmol/L (3.6-5.2)
--- NOTE | 2021-06-05 06:10 | NUR ---
I visited with the patient on and patient states was please with the food and meals and ask to let me know or nursing know if he needed any changes.
[2021-06-05 08:00] VITALS: BP 137/83; TEMP 98.2
[2021-06-05 12:00] VITALS: BP 117/67; TEMP 98.4
--- NOTE | 2021-06-05 15:27 | NUR ---
IV TO THE LEFT UPPER ARM NOTED SLIGHTLY RED AND PER PATIENT IV WOULD NOT FLUSH WHEN NURSE WAS CHECKING ON IT EARLIER. IV REMOVED WITH TIP INTACT AND SECURED WITH GAUZE. IV 22G X2 ATTEMPTS ONE IN THE RIGHT HAND UNSUCCESSFUL AND ONE TO THE RIGHT AC SUCCESSFUL. PATIENT TOLERATED WELL. BED LOCKED IN LOW POSITION, SIDE RAILS UP X2, CALL BOOTH WITHIN REACH.
[2021-06-05 16:00] VITALS: BP 109/79; TEMP 97.7
--- NOTE | 2021-06-05 18:44 | NUR ---
1550 PT REFUSED BED BATH/SHOWER. STATED HE TOOK SHOWER LAST NIGHT AND WASN'T GOING TO TAAKE ONE TODAY.
[2021-06-05 20:00] VITALS: BP 125/76; TEMP 98.7
--- NOTE | 2021-06-05 21:06 | NUR ---
1700 WOUND CARE PROVIDED PER MD ORDERS WOUND BED HAS >75% SLOUGH WITH COPIUS AMOUNT OF PURULENT DRAINAGE OBSERVED. MD NOTIFIED OF WOUNDS NEW ORDERS GIVEN TO CLEAN WOUNDS WITH NS APPLY NS MOISTENED GAUZE TO AREAS WITH SLOUGH APPLY VASELINE GAUZE TO AREAS NOT CONTAINING SLOUGH COVER WITH 4X4 AND ABD PADS. WRAP WITH MEL/KERLIX. SECURE WITH TAPE. DAILY AND PRN. RT LE LATERAL CLUSTER AREA (5 WOUNDS) 14.0 CM X 5.5CMX UTD RT LE ANTERIOR CLUSTER(5 WOUNDS) 8.0 CMX 3.3CM X UTD RED AREA OF RLE MEASURES 30 CM LENGTH AND TOTAL CIRCUM. OF 38.9CM LLE (POSTERIOR) 18.5CMX 11.7CM X 0.3CM RED AREA LLE 25.6CM X TOTAL CIRCUM 41.5 CM . PT ENCOURAGED TO KEEP LE BILAT ELEVATED. PT STATES HE CANT STAND HIS CALF TO TOUCH SURFACES EVEN WHEN THEY ARE WRAPPED I ENCOURAGED PT TO USE A PILLOW AND ELEVATE LE BILAT BY RESTING HEELS ON A PILLOW.
[2021-06-06] VITALS: BP 131/84; TEMP 98.8
[2021-06-06 04:00] VITALS: BP 111/63; TEMP 97.9
[2021-06-06 06:09] LABS: PLATELET COUNT 225 K/uL (142-355)
[2021-06-06 06:41] LABS: POTASSIUM 3.7 mmol/L (3.6-5.2)
[2021-06-06 08:00] VITALS: BP 128/70; TEMP 98.5
--- NOTE | 2021-06-06 10:43 | NUR ---
PORCELAIN ENAMELER HAS PLACED A NEW IV FOR THE PT. A 22G IN THE RT AC. PT TOLERATED IV INSERTION WELL.
--- NOTE | 2021-06-06 11:00 | NUR ---
PT IS SITTING UPRIGHT ON THE SIDE OF THE BED WITH LEGS DANGLING. PT HAS BEEN EDUCATED TO KEEP LEGS ELEVATED TO REDUCE SELLING BUT PT REFUSES STATING THAT HIS LEGS HURT WORSE WHEN THEY TOUCH THE BED. PT IS RECIEVING PRN PAIN MEDICATIONS. WILL CONTINUE TO MONITOR.
[2021-06-06 12:00] VITALS: BP 100/59; TEMP 98.2
--- NOTE | 2021-06-06 14:42 | NUR ---
IN PT'S ROOM TO ADMINISTER PRN PAIN MEDICATION REQUESTED BY PT. PT STATES THAT HE WANTS FINANCING ANALYST TO SPEAK WITH THE PHYSICIAN ABOUT HOW MUCH FLUID HE IS RETAINING AND THAT HE FEELS LIKE HE IS SUFFOCATING FROM THE FLUID. FINANCING ANALYST SPOKE WITH PHYSICIAN AND WAS TOLD THAT PT IS ON A 1500ML FLUID RESTRICTION AND IS CURRENTLY BEING NONCOMPLIANT WITH THE FLUID RESTRICTION. FINANCING ANALYST WENT TO PT'S ROOM AND REEDUCATED PT ON FLUID RESTRICTION AND TOOK THE LARGE PITCHER OUT OF THE ROOM DUE TO PT REFILLING THE PITCHER WHILE FINANCING ANALYST IS OUT OF THE ROOM. PT VERBALIZED UNDERSTANDING OF INSTRUCTIONS. FINANCING ANALYST ALSO INSTRUCTED PT THAT HE NEEDS TO KEEP ON HIS NASAL CANULA. THE PT STATED THAT HE DID NOT LIKE THE CURRENT NASAL CANULA THAT HE WAS USING AND ASKED FOR A NEW ONE, A NEW NASAL CANULA WAS PROVIDED TO HIM BY FINANCING ANALYST. WILL CONTINUE TO MONITOR.
[2021-06-06 16:00] VITALS: BP 106/74; TEMP 99
[2021-06-06 21:25] VITALS: BP 108/70; TEMP 99.7
--- NOTE | 2021-06-06 21:51 | NUR ---
LASIX AND DOXYCYCLINE GIVEN AT THIS TIME. PT'S COMPLAINING OF SOB AND REQUESTING HIS LASIX. LASIX 40 MG TO 22G TO RAC GIVEN AT THIS TIME. PT ALSO HAS NASAL CANNULA OFF UPON POWER PLANT SUPERVISOR ENTERING THE ROOM. PT WANTS TO WAIT CLOSER TO SHIFT CHANGE FOR BILATERAL WOUND DRESSING. PT ALSO DENIES PAIN AT THIS TIME. PT. SITTING UP IN CHAIR AND POWER PLANT SUPERVISOR ENCOURAGED PT TO PUT NASAL CANNULA BACK IN. POWER PLANT SUPERVISOR ALSO REMINDED PT OF 1500 ML FLUID RESTRICTION AND THE IMPORTANCE OF BEING COMPLIANT WITH THIS ORDER. PT DENIES ANY NEEDS OR CONCERNS AT THIS TIME. WILL CONTINUE TO MONITOR.
[2021-06-07] VITALS: BP 98/64; TEMP 98.5
[2021-06-07 04:00] VITALS: BP 127/78; TEMP 99.3
--- NOTE | 2021-06-07 05:35 | NUR ---
DRESSING CHANGES TO BILATERAL LOWER EXTREMITIES PERFORMED AT THIS TIME. PT. TOLERATED WELL.
[2021-06-07 06:02] LABS: PLATELET COUNT 253 K/uL (142-355)
[2021-06-07 06:40] LABS: POTASSIUM 3.7 mmol/L (3.6-5.2)
[2021-06-07 08:00] VITALS: BP 123/82; TEMP 99.2
--- NOTE | 2021-06-07 09:45 | NUR ---
EDUCATED PT ON ELEVATING BLE. OFFERED PT A RECLINER TO THAT HE CAN SIT UP AND STILL ELEVATED BLE. PT STATES " NO I CAN'T THE OPENINGS ARE ON THE BACK SIDE OF MY LEGS WERER IT LAYS, I CAN LAY IN THE BED FOR A LITTLE WHILE WITH THEM HANGING OFF TO THE SIDE" EDUCATED PT ON IMPORTANCE OF ELEVATING BLE AND HOW REDUCING THE SWELLING WILL DECREASE THE AMOUNT OF PAIN, AND PROPERLY ELEVATING. PT VERBALIZES UNDERSTANDING.
--- NOTE | 2021-06-07 11:54 | NUR ---
1150 RT CALLED BY NURSE. DR MOJICA REQUESTED RT TO WEAN PT OF O2. PT'S POX ON 3LPM VIA NC IS ONLY 90%. NURSE INFORMED.
[2021-06-07 12:00] VITALS: BP 145/90; TEMP 99.4
--- NOTE | 2021-06-07 13:49 | NUR ---
06/07/21 1315 PT SITTING UP IN CHAIR WEARING OXYGEN,RESP EVEN NONLABORED NAD NOTED.CALL LIGHT WITHIN REACH.CC
[2021-06-07 16:00] VITALS: BP 110/71; TEMP 99.5
[2021-06-07 20:00] VITALS: BP 134/85; TEMP 98.2
[2021-06-08] VITALS: BP 123/75; TEMP 97.7
[2021-06-08 04:00] VITALS: BP 135/82; TEMP 98
[2021-06-08 05:37] LABS: PLATELET COUNT 240 K/uL (142-355)
[2021-06-08 05:46] LABS: POTASSIUM 3.7 mmol/L (3.6-5.2)
[2021-06-08 08:00] VITALS: BP 142/90; TEMP 97.9
--- NOTE | 2021-06-08 08:42 | NUR ---
06/08/21 0825 AWAKE SITTING UP IN CHAIR REQUESTING PAIN MEDICATION WHEN TIME.NURSE DIONNA REPORTED TO.CC
--- NOTE | 2021-06-08 13:30 | NUR ---
PT IV DC'D TIP INTACT NO REDNESS OR SWELLING NOTED. PT GIVEN DISCHARGE INSTRUCTIONS AND PRESCRIPTIONS. PT REPORTS HE HAS TO LEAVE AND WILL COME BACK BY TO [employer].
== END 2021-06-08 18:13 | disposition home or self-care (01) | DRG 603 ==
LOC: ED 10:30 → MED/SURG 14:15
PROVIDERS: Emergency Medicine Emergency Medical Services; ADMIT Internal Medicine Endocrinology, Diabetes & Metabolism; ATTEND Internal Medicine Endocrinology, Diabetes & Metabolism
DX: L03.116 Cellulitis of left lower limb (principal); Z68.41 Body mass index [BMI] 40.0-44.9, adult; L03.115 Cellulitis of right lower limb; I25.10 Atherosclerotic heart disease of native coronary artery without angina pectoris; J44.9 Chronic obstructive pulmonary disease, unspecified; Z72.0 Tobacco use; E66.01 Morbid (severe) obesity due to excess calories; B96.1 Klebsiella pneumoniae [K. pneumoniae] as the cause of diseases classified elsewhere; I11.0 Hypertensive heart disease with heart failure; I50.9 Heart failure, unspecified; E11.9 Type 2 diabetes mellitus without complications
CPT/HCPCS: 36415; 80048; 80053; 81000; 81002; 83605; 83735; 85027; 85610; 87040; 87070; 87077; 87186; 87205; 87635; 94760; 96360; 96361; 96365; 96375; 96376; 99284; J1170; J1650; J1815; J1940; J2405; J2543; J3490; U0003

== ENCOUNTER 2021-07-15 15:19 | Emergency (ER) | payer OTHER ==
[~2021-07-15] VITALS: Ht 177.8 cm; Wt 135.6 kg
[~2021-07-15 15:19] MED LIST changes: +METF500T PO
[2021-07-15 16:45] VITALS: BP 148/75; TEMP 98.5
== END 2021-07-15 16:45 | disposition home or self-care (01) ==
LOC: ED 15:19
DX: M79.605 Pain in left leg (principal); M79.604 Pain in right leg; L03.116 Cellulitis of left lower limb; L03.115 Cellulitis of right lower limb; R60.0 Localized edema
CPT/HCPCS: 96372; 99283; J0696; J1940; J2270; J2405

== ENCOUNTER 2021-07-16 05:13 | Emergency (ER) | payer OTHER ==
[~2021-07-16] VITALS: Ht 177.8 cm; Wt 136.1 kg
[2021-07-16 06:00] VITALS: BP 141/87; TEMP 97.9
== END 2021-07-16 06:05 | disposition home or self-care (01) ==
LOC: ED 05:13
DX: L03.116 Cellulitis of left lower limb (principal); L03.115 Cellulitis of right lower limb; G89.29 Other chronic pain; R60.0 Localized edema; M79.605 Pain in left leg; M79.604 Pain in right leg
CPT/HCPCS: 99281

== ENCOUNTER 2021-07-16 21:09 | Emergency (ER) | payer OTHER ==
[~2021-07-16] VITALS: Ht 177.8 cm; Wt 142.9 kg
[2021-07-16 22:27] LABS: PLATELET COUNT 248 K/uL (142-355)
[2021-07-16 22:36] LABS: POTASSIUM 3.8 mmol/L (3.6-5.2)
[2021-07-16 22:56] VITALS: BP 138/72; TEMP 98.1
== END 2021-07-16 22:56 | disposition home or self-care (01) ==
LOC: ED 21:09
PROVIDERS: Hospitalist
DX: L03.116 Cellulitis of left lower limb (principal); L03.115 Cellulitis of right lower limb; M79.604 Pain in right leg
CPT/HCPCS: 36415; 80053; 85027; 96372; 99283; J0696; J1885; J1940

== ENCOUNTER 2021-08-09 15:59 | Emergency (ER) | payer OTHER ==
[~2021-08-09] VITALS: Ht 177.8 cm; Wt 142.9 kg
[2021-08-09 17:15] VITALS: BP 145/87; TEMP 98.3
== END 2021-08-09 17:15 | disposition home or self-care (01) ==
LOC: ED 15:59
DX: L97.329 Non-pressure chronic ulcer of left ankle with unspecified severity (principal); L97.319 Non-pressure chronic ulcer of right ankle with unspecified severity; G57.93 Unspecified mononeuropathy of bilateral lower limbs; M79.604 Pain in right leg
CPT/HCPCS: 96372; 99282; J1885